=== PATIENT | female | born 1950 | race Caucasian/White ===

== ENCOUNTER 2021-05-01 07:28 | Day surgery (SDC) | payer MEDICARE, OTHER, SELFPAY ==
[2021-04-26 10:14] VITALS: BMI 47.0
--- NOTE | 2021-04-27 16:30 | MHC.SHP ---
Pre-Procedural Eval Section A Date of Service: 04/27/21 The patient is an INPATIENT: No Changes since office visit: No Cold of Flu in the past 2 weeks, No New Medical Problems, No Changes in Medication and No Patient answered all questions The History & Physical has been completed within 30 days and I have reviewed it.: Yes Section B Chief Complaint: cataract Allergies: Allergies Allergy/AdvReac Type Severity Reaction Status Date / Time adhesive tape Allergy Blister Verified 04/26/21 10:20 amoxicillin Allergy Facial Verified 04/26/21 10:07 Swelling ampicillin Allergy Facial Verified 04/26/21 10:07 Swelling Penicillins Allergy Facial Verified 04/26/21 10:07 Swelling Plan Diagnosis/Plan: Unchanged I have reviewed the history and physical and performed a pertinent physical examination on my patient. No changes have occurred unless specified.
--- NOTE | 2021-04-28 13:46 | HO.ANESPROP2 ---
Documented by User: Mita Lutz NP 04/28/21 13:51 HPI - Anesthesia Eval Consult details Narrative: 71yo F for Left Cataract Extraction IOL Insertion No previous cataract on record PCP Cleared Pacer in situ - Interrogation on chart Stable at routine cardiology visit 01/2021. Pt is doing well and pacemaker is working appropriately. A-sensed rhythm. 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 PMFSH Past Medical History Medical History (Updated 04/26/21 @ 10:13 by Mary Vann RN) Atrial fibrillation Cataract History of cardioversion Hx of cardiac pacemaker Hx of malignant neoplasm of skin Hx of skin cancer, basal cell Hx of squamous cell carcinoma of skin Mild heartburn DENZEL on CPAP Vocal fold paralysis, unilateral Surgical History Surgical History (Updated 04/26/21 @ 10:13 by Mary Vann RN) H/O left knee surgery History of bunionectomy of right great toe History of cholecystectomy Hx of breast biopsy Hx of laparoscopic gastric banding Social History Social History (Updated 04/26/21 @ 10:17 by Mary Vann RN) Alcohol intake: current Alcohol intake frequency: a few times a month Alcohol type: wine Patient Tobacco Use Status: Former Tobacco user Quit Date: 2010 Tobacco use type: Cigarette Use of substances other than those prescribed or required for medical reasons: No Are you DNR?: No Advance Directives: No Advance Directives Information Provided: Yes Advance Directives on File: No Meds Allergies Allergy/AdvReac Type Severity Reaction Status Date / Time adhesive tape Allergy Blister Verified 04/26/21 10:20 amoxicillin Allergy Facial Verified 04/26/21 10:07 Swelling ampicillin Allergy Facial Verified 04/26/21 10:07 Swelling Penicillins Allergy Facial Verified 04/26/21 10:07 Swelling Home Medications Medication Instructions Recorded Confirmed Last Taken Type apixaban 5 mg tablet (Eliquis) 5 mg PO BID 04/26/21 04/26/21 Unknown History atorvastatin 40 mg tablet 40 mg PO BEDTIME 04/26/21 04/26/21 Unknown History furosemide 20 mg tablet 20 mg PO DAILY 04/26/21 04/26/21 Unknown History irbesartan 75 mg tablet 37.5 mg PO DAILY 04/26/21 04/26/21 Unknown History liraglutide 0.6 mg/0.1 mL (18 mg/3 1.8 mg SUBCUT DAILY 04/26/21 04/26/21 Unknown History mL) subcutaneous pen injector (Victoza 2-Juan José) metformin 1,000 mg tablet 1,000 mg PO BID 04/26/21 04/26/21 Unknown History sertraline 50 mg tablet 75 mg PO DAILY 04/26/21 04/26/21 Unknown History spironolactone 25 mg tablet 25 mg PO DAILY 04/26/21 04/26/21 Unknown History Exam Exam Date and Time: April 28, 2021 1346 Height,Weight and Vital Signs: Height 5 ft 0.5 in Weight 111.13 kg Narrative Narrative: EKG 01/2021 AV paced at 90 Documented by User: Bowen Casas MD 05/01/21 08:07 [facility] Past Medical History Medical History (Updated 04/26/21 @ 10:13 by Mary Vann RN) Atrial fibrillation Cataract History of cardioversion Hx of cardiac pacemaker Hx of malignant neoplasm of skin Hx of skin cancer, basal cell Hx of squamous cell carcinoma of skin Mild heartburn DENZEL on CPAP Vocal fold paralysis, unilateral Family History Family history of problems with anesthesia: No Surgical History Surgical History (Updated 04/26/21 @ 10:13 by Mary Vann RN) H/O left knee surgery History of bunionectomy of right great toe History of cholecystectomy Hx of breast biopsy Hx of laparoscopic gastric banding History of Problems with Anesthesia: No Social History Social History (Updated 04/26/21 @ 10:17 by Mary Vann RN) Alcohol intake: current Alcohol intake frequency: a few times a month Alcohol type: wine Patient Tobacco Use Status: Former Tobacco user Quit Date: 2010 Tobacco use type: Cigarette Use of substances other than those prescribed or required for medical reasons: No Are you DNR?: No Advance Directives: No Advance Directives Information Provided: Yes Advance Directives on File: No Meds Allergies Allergy/AdvReac Type Severity Reaction Status Date / Time adhesive tape Allergy Blister Verified 04/26/21 10:20 amoxicillin Allergy Facial Verified 04/26/21 10:07 Swelling ampicillin Allergy Facial Verified 04/26/21 10:07 Swelling Penicillins Allergy Facial Verified 04/26/21 10:07 Swelling Home Medications Medication Instructions Recorded Confirmed Last Taken Type apixaban 5 mg tablet (Eliquis) 5 mg PO BID 04/26/21 04/26/21 Unknown History atorvastatin 40 mg tablet 40 mg PO BEDTIME 04/26/21 04/26/21 Unknown History furosemide 20 mg tablet 20 mg PO DAILY 04/26/21 04/26/21 Unknown History irbesartan 75 mg tablet 37.5 mg PO DAILY 04/26/21 04/26/21 Unknown History liraglutide 0.6 mg/0.1 mL (18 mg/3 1.8 mg SUBCUT DAILY 04/26/21 04/26/21 Unknown History mL) subcutaneous pen injector (PhosImmuneza 2-Juan José) metformin 1,000 mg tablet 1,000 mg PO BID 04/26/21 04/26/21 Unknown History sertraline 50 mg tablet 75 mg PO DAILY 04/26/21 04/26/21 Unknown History spironolactone 25 mg tablet 25 mg PO DAILY 04/26/21 04/26/21 Unknown History Exam Airway Mallampati Class: III TM Dist: >3cm Neck ROM: Full Loose/Missing/Broken Teeth: No Heart: [id number] Lungs: cta b/l Assessment and Plan Assessment Anesthesia Assessment: Anesthesia Plan Discussed and Chart Reviewed Final Anesthetic Review Family History of Problems with Anesthesia: No History of Problems with Anesthesia: No NPO: Yes ASA Class: III Final Preanesthetic Review: No Changes in Pt Med Stat, Meds/Allgs Chart Reviewed, Consent Obtained/Reviewed and Anes Risks/Benef Reviewed Patient Risk: Intermediate Procedure Risk: Low Assessment/Block/Sedation in SS: Assess/Block/Sedation-SS Anesthetic Plan Anesthetic Plan: MAC: and Agree w/ Assess. and Plan Disposition: Standard PACU
[2021-05-01 07:39] VITALS: BP 144/80; PULSE 60; RESP 20; TEMP 36.1; O2SAT 97
[2021-05-01 08:06] LABS: Glucose, Whole Blood 208 mg/dL (60-115)
[2021-05-01] MEDS: Tetracaine HCl/PF 0.5% Oph Sol 4 ML DROPS 1 DROP EYE-LEFT (08:07)
[2021-05-01] MEDS: Tropicamide 1 % Ophth Sol 3 ML BTL 1 DROP EYE-LEFT ×3 (08:10→08:16)
[2021-05-01] MEDS: Phenylephrine HCL 2.5% Oph SoL 2 ML BOTTLE 1 DROP EYE-LEFT ×3 (08:12→08:18)
--- NOTE | 2021-05-01 09:40 | HO.PNOPHT ---
Ophthalmology Procedure Procedure Date of Service: 05/01/21 Ophthalmology Viscoelastic: Healon Duet Dual Pack Pro Ophthalmology Lenses: TECNIS BS5589 (23.5) Procedure Notes: PREOPERATIVE DIAGNOSIS: Decreased visual acuity left eye secondary to cataract POSTOPERATIVE DIAGNOSIS: Same PROCEDURE: Left cataract extraction with intraocular lens insertion SURGEON: Rodney Singleton M.D. ANESTHESIA: Topical/MAC without sedation ESTIMATED BLOOD LOSS: None COMPLICATIONS: None After obtaining informed consent, the patient was brought to the operation room suite and placed in the supine position. After adequate sedation per anesthesia, topical drops of Tetracaine were given to the left eye. The eye was then prepped and draped in the usual sterile fashion. The operating room microscope was then positioned over the operative eye and a lid speculum placed. A paracentesis was created. Viscoelastic was then instilled into the anterior chamber. A three plane incision was then created temporally, utilizing a 2.85 mm keratome.The patient refused sedation so MPF Lidocaine 0.2 ml was injected intracarmeal.Capsulotomy forceps were then utilized to create a circular tear capsulotomy. Hydrodissection and hydrodelineation were carried out until adequate mobilization of the nucleus occurred. Phacoemulsification was then utilized to remove the dense central nucleus followed by removal of the cortical material utilizing the automated aspiration irrigation unit. Viscoat elastic was instilled into the posterior capsular bag followed by placement of a posterior chamber intraocular lens without difficulty. The residual Viscoat elastic was then removed utilizing the automated IA machine. The wound was check and found to be watertight. The patient tolerated the procedure well and the lid speculum was removed. Intracameral injection of Vigamox 0.1 mL followed by a subtenon injection of Kenalog-40 0.2 mL were administered. The patient will be seen in the a.m.
[2021-05-01 10:06] VITALS: BP 114/70; PULSE 60; RESP 16; TEMP 36.2; O2SAT 98
== END 2021-05-01 10:13 | disposition home or self-care (01) ==
PROVIDERS: PCP Family Medicine; Visit Provider Ophthalmology
PROC: (CPT 66985; principal; 2021-05-01 10:10)
DX: H25.12 Age-related nuclear cataract, left eye (principal); H35.3132 Nonexudative age-related macular degeneration, bilateral, intermediate dry stage; H52.4 Presbyopia; G47.33 Obstructive sleep apnea (adult) (pediatric); I10 Essential (primary) hypertension; E11.9 Type 2 diabetes mellitus without complications; I48.91 Unspecified atrial fibrillation; Z79.01 Long term (current) use of anticoagulants; Z79.899 Other long term (current) drug therapy; Z79.84 Long term (current) use of oral hypoglycemic drugs
CPT/HCPCS: 66984; 82947; J3300; V2632